=== PATIENT | male | born 1950 | race Caucasian/White ===

== ENCOUNTER → 2018-03-05 | Outpatient (CLI) | payer MEDICARE ==
--- NOTE | 2018-03-05 16:46 | US ---
EXAMINATION TYPE: US liver DATE OF EXAM: 03/05/2018 COMPARISON: NONE CLINICAL HISTORY: 67-year-old male R60.0 Localized edema. Elevated liver enzymes TECHNIQUE: Multiple sonographic images of the right upper quadrant are obtained. FINDINGS: Court Security Officer notes: Extremely limited exam due to midline bowel gas and body habitus. EXAM MEASUREMENTS: Liver Length: 14.8 cm Gallbladder Wall: 0.2 cm CBD: 0.5 cm Right Kidney: 14.2 x 6.5 x 4.9 cm Pancreas: not well visualized due to midline bowel gas Liver: nodular contour, limited visualization of right lobe due to midline bowel gas. No focal lesio n within the visualized portions. Gallbladder: No mildly hydropic measuring 5 cm wide. No pericholecystic fluid, wall thickening, or s hadowing calculi. Evidence for sonographic Rico's sign: Yes CBD: wnl Right Kidney: No hydronephrosis. Upper pole cyst measures 2.7 x 2.2 x 2.1 cm IMPRESSION: 1. Mildly hydropic gallbladder but without ancillary findings of acute cholecystitis at this time. Matt wilkinson, given the positive sonographic Rico sign, if concern for early acute cholecystitis, follow-u p ultrasound or HIDA scan. 2. Slight contour nodularity of the liver may represent underlying cirrhosis. Exam is significantly l imited due to combination of body habitus and bowel gas.
--- NOTE | 2018-03-06 14:34 | ECHOF ---
Referral Reason:R60.0 Localized edema MEASUREMENTS -------- HEIGHT: 177.8 cm WEIGHT: 95.3 kg BP: RVIDd: 3.5 cm (< 3.3) IVSd: 1.0 cm (0.6 - 1.1) LVIDd: 5.8 cm (3.9 - 5.3) LVPWd: 1.1 cm (0.6 - 1.1) IVSs: 1.3 cm LVIDs: 3.4 cm LVPWs: 1.3 cm LAESV Index (A-L): 22.62 ml/m Ao Diam: 4.3 cm (2.0 - 3.7) AV Cusp: 2.1 cm (1.5 - 2.6) LA Diam: 3.3 cm (2.7 - 3.8) MV E Jean: 0.41 m/s MV DecT: 261 ms MV A Jean: 0.80 m/s MV E/A Ratio: 0.52 RAP: 5.00 mmHg RVSP: 18.26 mmHg FINDINGS -------- Sinus rhythm. This was a technically adequate study. The left ventricular size is normal. There is borderline concentric left ventricular hypertrophy. Overall left ventricular systolic function is normal with, an EF between 55 - 60 %. The right ventricle is mildly enlarged. Normal LA size by volume 22+/-6 ml/m2. The right atrium is normal in size. Aortic valve is trileaflet and is mildly thickened. Trace to mild aortic regurgitation. There is no evidence of aortic stenosis. The mitral valve leaflets are mildly thickened. There is trace to mild mitral regurgitation. Trace tricuspid regurgitation present. Right ventricular systolic pressure is normal at < 35 mmHg. There is no evidence of pulmonary hypertension. Trace/mild (physiologic) pulmonic regurgitation. The aortic root is mildy dilated, up to 3.9 cm. Normal inferior vena cava with normal inspiratory collapse consistent with estimated right atrial pre ssure of 5 mmHg. There is no pericardial effusion. CONCLUSIONS -------- 1. Sinus rhythm. 2. This was a technically adequate study. 3. The left ventricular size is normal. 4. There is borderline concentric left ventricular hypertrophy. 5. Overall left ventricular systolic function is normal with, an EF between 55 - 60 %. 6. The right ventricle is mildly enlarged. 7. Normal LA size by volume 22+/-6 ml/m2. 8. Aortic valve is trileaflet and is mildly thickened. 9. Trace to mild aortic regurgitation. 10. The mitral valve leaflets are mildly thickened. 11. There is trace to mild mitral regurgitation. 12. Trace tricuspid regurgitation present. 13. Right ventricular systolic pressure is normal at < 35 mmHg. 14. There is no evidence of pulmonary hypertension. 15. Trace/mild (physiologic) pulmonic regurgitation. 16. The aortic root is mildy dilated. 17. There is no pericardial effusion. WARP DYEING TENDER: Jesus Verma RDCS
== END | disposition home or self-care (01) ==
LOC: RADECHMAIN 15:41
PROVIDERS: ATTEND Internal Medicine
DX: I08.3 Combined rheumatic disorders of mitral, aortic and tricuspid valves (principal); K76.89 Other specified diseases of liver; K82.1 Hydrops of gallbladder
CPT/HCPCS: 76705; 93306

== ENCOUNTER → 2019-08-16 | Outpatient (CLI) | payer MEDICARE ==
[2019-08-16 15:13] LABS: HCT 36.9 % (39.0-53.0); HGB 12.7 gm/dL (13.0-17.5); MCH 35.8 pg (25.0-35.0); MCHC 34.3 g/dL (31.0-37.0); MCV 104.2 fL (80.0-100.0); Macrocytosis Slight; Mean Platelet Volume 8.4; Platelet Count 122 k/uL (150-450); RBC 3.54 m/uL (4.30-5.90); RDW 12.9 % (11.5-15.5)
[2019-08-16 15:27] LABS: Partial Thromboplastin Time 24.9 sec (22.0-30.0); Prothrombin Time 10.8 sec (9.0-12.0)
[2019-08-16 15:41] LABS: Albumin 4.2 g/dL (3.5-5.0); Appearance,Urine Clear (Clear); Bilirubin,Urine Negative (Negative); Blood,Urine Negative (Negative); Calcium 9.6 mg/dL (8.4-10.2); Color,Urine Yellow; Glucose,Urine (UA) Negative (Negative); Ketones,Urine Negative (Negative); Leukocyte Esterase,Urine Negative (Negative); Nitrite,Urine Negative (Negative); PH, Urine 6.5 (5.0-8.0); Potassium 4.2 mmol/L (3.5-5.1); Protein,Urine Negative (Negative); Specific Gravity,Urine 1.018 (1.001-1.035); Total Bilirubin 1.2 mg/dL (0.2-1.3); Total Protein 6.8 g/dL (6.3-8.2); Urobilinogen,Urine <2.0 mg/dL (<2.0)
== END | disposition home or self-care (01) ==
LOC: LABPAT 14:19
PROVIDERS: ATTEND Orthopaedic Surgery
DX: Z01.812 Encounter for preprocedural laboratory examination (principal); Z01.818 Encounter for other preprocedural examination
CPT/HCPCS: 36415; 80053; 81003; 85027; 85610; 85730; 87070; 93005

== ENCOUNTER 2019-09-05 13:18 | Day surgery (SDC) | payer MEDICARE ==
[2019-08-26 11:40] VITALS: BMI 30.4
[~2019-09-05 13:18] MED LIST: ACETAMINOPHEN TAB 500 MG TAB PO ONE; BISACODYL 10 MG SUPP RECTAL PRN; GABAPENTIN 300 MG CAP PO ONE; HYDROcodone/APAP 5-325MG 1 EACH TAB PO PRN; HYDROmorphone 0.5 MG/0.5 ML SYRINGE IVP PRN; LIDOCAINE 1% 20 ML VIAL (10MG/ML) FOR IV START INTRADERMA PRN; MAGNESIUM HYDROXIDE 2,400 MG/10 ML CUP PO PRN; MELOXICAM 7.5 MG TAB PO ONE; MIDAZOLAM 2 MG/2 ML VIAL IV PRN; NA PHOS,M-B/NA PHOS,DI-BA 133 ML ENEMA RECTAL PRN; NALOXONE 0.4 MG/ML 1 ML VIAL IV PRN; ONDANSETRON 4 MG/2 ML VIAL IVP PRN; TRANEXAMIC ACID 1,000 MG in SODIUM CHLORIDE 0.9% 100 ML IVPB ONE; fentaNYL (PF) 50 MCG/ML 2 ML AMP IV PRN; hydrOXYzine PAMOATE 25 MG CAP PO PRN
[2019-09-05] MEDS: LACTATED RINGERS 1,000 ML IV SCH ×3 (14:11→19:46)
[2019-09-05] MEDS ORDERED: DEXAMETHASONE SOD PHOSPHATE 10 MG/ML 1 ML VIAL IV ONE (14:24)
[2019-09-05] MEDS ORDERED: MIDAZOLAM 2 MG/2 ML VIAL IVP ONE (14:30)
[2019-09-05] MEDS ORDERED: fentaNYL (PF) 50 MCG/ML 2 ML AMP IV ONE (14:30)
[2019-09-05] MEDS ORDERED: PROPOFOL 10 MG/ML 20 ML VIAL IV ONE (15:11)
[2019-09-05] MEDS ORDERED: fentaNYL (PF) 50 MCG/ML 2 ML AMP ONE (15:11)
[2019-09-05] MEDS ORDERED: MIDAZOLAM 2 MG/2 ML VIAL ONE (15:11)
[2019-09-05] MEDS ORDERED: PHENYLEPHRINE-0.9% NACL SYG 1 MG/10 ML SYRINGE ONE (15:11)
[2019-09-05] MEDS ORDERED: TRANEXAMIC ACID 1,000 MG/10 ML VIAL ONE (15:11)
[2019-09-05] MEDS ORDERED: SODIUM CHLORIDE 0.9% 100 ML BAG ONE (15:11)
[2019-09-05] MEDS: ROPIVACAINE 246.25 MG, EPINEPHrine 0.5 MG, KETOROLAC 30 MG, cloNIDine HCL/PF 80 MCG, WA... MISCELLANE ONE ×10 (15:14→16:09)
[2019-09-05] MEDS ORDERED: ROPIVACAINE 0.2%-NS ON-Q PUMP 1,090 MG, EMPTY PAIN BALL 1 EACH MISCELLANE PRN (15:14)
--- NOTE | 2019-09-05 15:16 | P.ANPRN ---
Procedure Note - Anesthesia - Nerve Block Performed Right Adductor Canal Infusion Time Out Performed: Yes Date of Procedure: 09/05/19 Procedure Start Time: 14:29 Procedure Stop Time: 14:38 Location of Patient: PreOp Indication: Acute Post-Operative Pain, Requested by Surgeon Specifically requested for management of pain by DrNelson: Daniel Steward Sedation Type: Sedate with meaningful contact maintained Preparation: Sterile Prep Position: Supine Catheter Depth at Skin (cm): 7 Catheter: Indwelling Needle Types: Pajunk Needle Gauge: 18 Ultrasound used to visualize needle placement: Yes Ultrasound used to observe medication spread: Yes Injectate: 0.5% Ropivacaine (see comment for volume) (20 cc) Blood Aspirated: No Pain Paresthesia on Injection Noted: No Resistance on Injection: Normal Image Stored and Saved: Yes Events: Uneventful and Well Tolerated
[2019-09-05] MEDS ORDERED: LACTATED RINGERS 1,000 ML IV ONE (15:47)
--- NOTE | 2019-09-05 17:10 | P.OP ---
Date of Procedure: 09/05/19 Procedure(s) Performed: PREOPERATIVE DIAGNOSIS: Right knee severe osteoarthritis with genu varum POSTOPERATIVE DIAGNOSIS: Right knee severe osteoarthritis with genu varum OPERATION: Right knee cemented total replacement arthroplasty. ANESTHESIA: Spinal ESTIMATED BLOOD LOSS: 50ml. ALGEBRA TEACHER: Rowena Tello PA-C (assistance with: patient positioning, retraction, exposure, hemostasis, leg positioning, implantation, irrigation, closure, dressing) COMPLICATIONS: None apparent. COMPONENTS IMPLANTED: Journey II BCS total knee system from [employer] INDICATIONS: Mr. Mcdermott is a 68 year old male with a history of right knee osteoarthritis. The patient's knee is end-stage, and conservative management has failed. The operation of knee replacement has been discussed at length in the office, as well as potential risks and complications. These are inclusive of, but not limited to: bleeding, infection, scarring, discomfort, blood vessel and nerve damage, need for further surgery, failure to relieve symptoms, persistence, recurrence, or worsening of problems, loosening, dislocation, wear, blood clot, pulmonary embolism, , gait dysfunction, stiffness, and other risks as discussed in the office. The patient elects to proceed and the consent form has been signed. PROCEDURE: The patient was taken to the operating room and positioned on the operating room table in the supine position. Anesthesia was initiated. Care was taken to make sure that all pressure points were adequately padded. The operative lower extremity was prepped and draped in the usual aseptic fashion using ChloraPrep. Ioban drape was used for the case and the patient received intravenous antibiotics within one hour of the incision. A pneumotourniquet and leg lay were used for the case. The limb was exsanguinated with an Esmarch bandage and the tourniquet was inflated to 350 mmHg. Time-out was called confirming the patient's identity, side, procedure and administration of antibiotics and tranexamic acid. The incision was then created midline directly over the right knee, carried down through skin and into the subcutaneous tissues and down to fascia. Full thickness subcutaneous medial flap was developed. Medial parapatellar arthrotomy was performed and the interior of the knee was inspected. There was end-stage osteoarthritis of the knee with a mild to moderate genu valgum type deformity. The fat pad was excised and proximal medial release on the tibia was completed using meticulous dissection and a curved osteotome. The anterior cruciate ligament was taken down. Note was made of significant attrition of the anterior and significant degenerative appearance of the cruciate ligaments. The exposure was excellent. The knee was flexed 90 degrees and the patella was everted. The [employer] pre- made distal cutting block was attached and pinned into position. The planned cut was analyzed visually and with the alignment imelda and found to be satisfactory without the need for any adjustment. The oscillating saw was then used to make the distal femoral cut and make the alignment holes for the 5 in 1 block. This cut was confirmed to be flat with the flat end of an osteotome. The 5 in 1 block was then used to create the anterior posterior condylar resections and the chamfer cuts. The retractors were placed around the tibia and the tibial surface was addressed. The [employer] pre-made guide was placed onto the exposed tibial surface and pinned into position to dewayne the rotational alignment. The alignment of the guide was checked for depth of plannned resection, slope, and varus valgus. Guide was confirmed to be in good position and the tibial cut was then created with protection of the posterior neurovascular structures and the collateral ligaments. The tibial cut surface was removed and sized. Spacer block technique was then used to confirm that the flexion and extension gaps were equal. Soft tissue releases and adjustment of the tibial and/or femoral cuts were made, as necessary, until the gaps were equal. This included release of the posterior cruciate ligament, which was excessively tight in this patient. Prior to placing trial components, anesthetic solution consisting of ropivicaine with epinephrine, ketorolac, and clonidine was injected carefully and methodically in a grid pattern using aspiration technique into the soft tissue around the knee circumferentially, starting with the deeper tissues first and progressing to fascia, and then finally the skin/subcutaneous tissue. Particular care was taken when injecting the posterior capsule, with avoidance of the midline posterior area. The trial components were inserted. The tibial tray was allowed to self center and the patella was noted to track very well. The position of the tibial component was marked and noted to be nearly exactly aligned with the pre-drilled holes from the [employer] guide. The tibia was then finished for a stemmed tibial component. Patellar resurfacing was performed using a reamer. The size of the required patellar component was estimated and the patellar surface was then reamed down to a residual thickness which would recreate the chipewwa thickness with the component. The exact placement of the patellar component was adjusted for posit ion based on preoperative x-rays and intraoperative findings. Trial components were removed and the cut surfaces of the bone were pulse lavaged thoroughly and dried. Cement was mixed on the back table and applied to the final components. Cement was then applied to the tibial surface and pressurized into the surface using finger pressurization technique. The tibial component was then applied and excess cement was removed after it was impacted securely and noted to be flush with the cut surface. In similar fashion, the cement was applied to the cut femoral surface, pressurized in using finger pressurization and the component was impacted into place. Excess cement was removed. The polyethylene spacer was then implanted and locked into position. The patellar component was then applied in similar technique and a patellar clamp was used to hold the patella in place as the cement hardened. Once the cement had fully hardened, the knee was reinspected. Any other cement extrusion was removed and final kinematic testing showed range of motion from 0 to 130 degrees with excellent stability, both medially and laterally and appropriate alignment of the leg. Patellar tracking was excellent. The knee was then thoroughly pulse lavaged with normal saline. The tourniquet was deflated and hemostasis was obtained with electrocautery and IV tranexamic acid, 1 g given at the start of the operation and 1 g at the start of closure. Closure was with #2 Ethibond in the fascia/capsule and supplemented with #2 Quill, 2-0 Vicryl suture was used for the subcutaneous tissues and 3-0 Quill for the skin. Dermabond/Steri-Strips were then applied. A lightly compressive dressing was applied using Webril and an Blas wrap. The patient was then transferred to stretcher and taken to the recovery room in stable
--- NOTE | 2019-09-05 17:45 | XR ---
EXAMINATION TYPE: XR knee limited RT DATE OF EXAM: 09/05/2019 COMPARISON: NONE HISTORY: Knee surgery TECHNIQUE: 2 views FINDINGS: There is right knee prosthesis. Components are in anatomic position. IMPRESSION: No complicating process seen.
[2019-09-05] MEDS: SODIUM CHLORIDE 0.9% 1,000 ML IV SCH ×2 (19:45→23:36)
[2019-09-05] MEDS ORDERED: ASPIRIN 81 MG PO SCH (21:00)
[2019-09-05] MEDS ORDERED: SENNOSIDES-DOCUSATE SODIUM 1 EACH TAB PO SCH (21:00)
--- NOTE | 2019-09-05 21:52 | P.CONS ---
History of Present Illness - Reason for Consult Consult date: 09/05/19 Medical management Requesting physician: Daniel Steward - Chief Complaint Right total knee arthroplasty - History of Present Illness Consultation: This is a pleasant 68-year-old patient of Dr. Jeremías Velasco. Chronic stable medical conditions include hypertension, osteoarthritis in many joints, hemachromatosis. Patient has weekly bloodletting. Does follow with Dr. Marcos lees om gastroenterology. He has undergone right total knee arthroplasty. Postprocedure pain is controlled. No nausea vomiting. No chest pain. Denies any cardiac history. Did tolerate some supple despite. Laying in bed. Review of systems: GEN.: None EYES: None HEENT: None NECK: None RESPIRATORY: None CARDIOVASCULAR: None GASTROINTESTINAL: None GENITOURINARY: None MUSCULOSKELETAL: Joint pains LYMPHATICS: None HEMATOLOGICAL: None PSYCHIATRY: None NEUROLOGICAL: None Social history: Does not smoke. Alcohol occasionally. Rarely marijuana. This was his fiance. Retired. 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 Family history: Reviewed, noncontributory to presentation Physical examination: VITAL SIGNS: 98, 75, 18, 131/76, 36% room air GENERAL: [Average built, laying in bed, comfortable. EYES: Pupils equal. Conjunctiva normal. HEENT: External appearance of nose and ears normal, oral cavity grossly normal. NECK: JVD not raised; masses not palpable. HEART: First and second heart sounds are normal; no edema. LUNGS: Respiratory rate normal; clear to auscultation. ABDOMEN: Soft, nontender, liver spleen not palpable, no masses palpable. PSYCH: Alert and oriented x3; mood and affect normal. NEUROLOGICAL: Cranial nerves grossly intact; no facial asymmetry, power and sensation grossly intact. LYMPHATICS: No lymph nodes palpable in the axilla and neck MUSCULOSKELETAL: Dressing over the right knee INVESTIGATIONS, reviewed in the clinical context: from 08/16/2019: White count 5 hemoglobin 12.7 potassium 4.2 creatinine 1.11 EKG-normal sinus rhythm Assessment: -Right total knee arthroplasty -Primary osteoarthritis -Essential hypertension -Chronic hemachromatosis Plan: Patient's home medications resumed. Care was discussed with the patient. Patient is getting IV fluids and is on aspirin for DVT prophylaxis per orthopedics. Questions were answered. Thank you Dr. Steward Past Medical History Past Medical History: Blood Disorder, Hypertension, Osteoarthritis (OA) Additional Past Medical History / Comment(s): hx of hemochromatosis (states too much iron) History of Any Multi-Drug Resistant Organisms: None Reported Past Surgical History: Joint Replacement, Orthopedic Surgery Additional Past Surgical History / Comment(s): rt hip replacement, colonoscopy, past knee sx Past Anesthesia/Blood Transfusion Reactions: Previous Problems w/ Anesthesia Additional Past Anesthesia/Blood Transfusion Reaction / Comm: "slow to wake up" Past Psychological History: No Psychological Hx Reported Smoking Status: Never smoker Past Alcohol Use History: Occasional Past Drug Use History: Marijuana Additional Drug Use History / Comment(s): occasional use, instructed to hold 24 hrs prior to procedure - Past Family History Father Family Medical History: No Reported History Mother Family Medical History: No Reported History Medications and Allergies Home Medications Medication Instructions Recorded Confirmed Type Diclofenac Sodium [Voltaren] 25 mg PO DIRECTED 08/26/19 08/26/19 History Hydrochlorothiazide 25 mg PO QAM 08/26/19 09/05/19 History Losartan Potassium 100 mg PO QAM 08/26/19 09/05/19 History Multivitamins, Thera [Multivitamin 1 tab PO DAILY 08/26/19 08/26/19 History (formulary)] Naproxen Sodium [Aleve] 220 mg PO BID PRN 08/26/19 08/26/19 History Sildenafil 1 tab PO DIRECTED PRN 08/26/19 History Tumeric 1 tab PO DAILY 08/26/19 History Allergies Allergy/AdvReac Type Severity Reaction Status Date / Time clindamycin Allergy Rash/Hives Verified 09/05/19 14:19 Physical Exam Vitals: Vital Signs Temp Pulse Resp BP Pulse Ox 09/05/19 20:30 98.0 F 75 18 131/76 96 09/05/19 20:15 73 146/76 98 09/05/19 20:00 66 154/81 96 09/05/19 19:45 56 L 130/77 98 09/05/19 19:30 55 L 163/82 100 09/05/19 19:15 49 L 136/72 100 09/05/19 19:00 49 L 142/71 98 09/05/19 18:45 50 L 124/84 99 09/05/19 18:30 97.9 F 61 18 144/78 98 09/05/19 18:21 96.5 F L 64 16 147/72 96 09/05/19 18:00 50 L 14 149/72 99 09/05/19 17:45 48 L 14 123/58 96 09/05/19 17:21 97.1 F L 76 16 140/66 96 09/05/19 14:53 58 L 153/79 99 09/05/19 14:11 98.5 F 60 146/88 98 Intake and Output 09/05/19 09/05/19 09/05/19 06:59 14:59 22:59 Intake Total 600 1250 Output Total 400 Balance 600 850 Intake: IV 600 1250 Output: Urine 350 Estimated Blood Loss 50 Other: # Voids 1 Weight 92.6 kg 92.6 kg
[2019-09-06 07:47] VITALS: BP 112/65; PULSE 60; RESP 16; TEMP 98.6
[2019-09-06 07:58] LABS: Basophils % (A) 0 %; Eosinophils % (A) 0 %; HCT 31.1 % (39.0-53.0); HGB 10.6 gm/dL (13.0-17.5); Lymphocytes # (A) 0.7 k/uL (1.0-4.8); Lymphocytes % (A) 8 %; MCH 35.7 pg (25.0-35.0); MCHC 33.9 g/dL (31.0-37.0); MCV 105.2 fL (80.0-100.0); Macrocytosis Slight; Mean Platelet Volume 8.5; Monocytes # (A) 0.5 k/uL (0-1.0); Monocytes % (A) 5 %; Neutrophils # (A) 8.5 k/uL (1.3-7.7); Neutrophils % (A) 86 %; Platelet Count 119 k/uL (150-450); RBC 2.96 m/uL (4.30-5.90); RDW 12.8 % (11.5-15.5); WBC 9.9 k/uL (3.8-10.6)
--- NOTE | 2019-09-06 08:11 | P.PN ---
Progress Note - Text Anesthesia POD 1 0713. Patient is status post right TKR under spinal anesthesia with a right adductor canal catheter placed for postoperative pain relief. With ropivacaine 0.2% running at 8 cc's per hour, the patient's VAS is (2, 4). Catheter site is clean dry and intact.
[2019-09-06] MEDS ORDERED: LOSARTAN 50 MG TAB PO SCH (09:00)
[2019-09-06] MEDS ORDERED: ASPIRIN 325 MG TAB PO SCH (09:00)
[2019-09-06] MEDS ORDERED: HYDROCHLOROTHIAZIDE 25 MG TAB PO SCH (09:00)
--- NOTE | 2019-09-07 00:15 | P.PN ---
Progress Note - Text Progress Note Date: 09/06/19 - Chief Complaint Right total knee arthroplasty Interval history: This is a pleasant 68-year-old patient of Dr. Jeremías Velasco. Chronic stable medical conditions include hypertension, osteoarthritis in many joints, hemachromatosis. Patient has weekly bloodletting. Does follow with Dr. Rodríguez from gastroenterology. He has undergone right total knee arthroplasty. Today-feeling better. Pain control. Did have his breakfast. Did work with [employer] Review of systems: Was done for constitutional, cardiovascular, GI, pulmonary. Musculoskeletal, relevant finding as above Current medications reviewed in today's electronic records Physical examination: VITAL SIGNS: 98.6, 60, 16, 11 2/65, 95% room air GENERAL: Laying in bed, comfortable EYES: Pupils equal. Conjunctiva normal. HEENT: External appearance of nose and ears normal, oral cavity grossly normal. NECK: JVD not raised; masses not palpable. HEART: First and second heart sounds are normal; no edema. LUNGS: Respiratory rate normal; clear to auscultation. ABDOMEN: Soft, nontender, liver spleen not palpable, no masses palpable. PSYCH: Alert and oriented x3; mood and affect normal. MUSCULOSKELETAL: Dressing over the right knee INVESTIGATIONS, reviewed in the clinical context: White count 9.9 hemoglobin 10.6 platelets 119 from 08/16/2019: White count 5 hemoglobin 12.7 potassium 4.2 creatinine 1.11 EKG-normal sinus rhythm Assessment: -Right total knee arthroplasty -Primary osteoarthritis -Essential hypertension -Chronic hemachromatosis -Acute postprocedure blood loss anemia as expected from surgery Plan: Patient stable. Should have repeat labs drawn as an outpatient. Follow with PCP to week. Follow was discussed with the patient.. Thank you Dr. Steward
== END 2019-09-06 13:40 | disposition home or self-care (01) ==
LOC: OR 13:18 → 4SSUR 17:20 → OR 09-06 13:40
PROVIDERS: ATTEND Orthopaedic Surgery
DX: M17.0 Bilateral primary osteoarthritis of knee (principal); D62 Acute posthemorrhagic anemia; M89.49 Other hypertrophic osteoarthropathy, multiple sites; E83.110 Hereditary hemochromatosis; N52.9 Male erectile dysfunction, unspecified; I10 Essential (primary) hypertension; R22.41 Localized swelling, mass and lump, right lower limb; H91.90 Unspecified hearing loss, unspecified ear; R26.81 Unsteadiness on feet; H53.8 Other visual disturbances; R00.1 Bradycardia, unspecified; Z79.899 Other long term (current) drug therapy; Z79.1 Long term (current) use of non-steroidal anti-inflammatories (NSAID); Z97.3 Presence of spectacles and contact lenses; Z86.19 Personal history of other infectious and parasitic diseases; Z96.641 Presence of right artificial hip joint; Z98.890 Other specified postprocedural states; Z88.1 Allergy status to other antibiotic agents; Z79.891 Long term (current) use of opiate analgesic; Z91.89 Other specified personal risk factors, not elsewhere classified; Z82.49 Family history of ischemic heart disease and other diseases of the circulatory system; Z80.1 Family history of malignant neoplasm of trachea, bronchus and lung
CPT/HCPCS: 27447; 97161; 64448; 76942; 85025; 88300; 73560; C1713; C1776; J2250; J0171; J1100; J0690 ×2; J2405; J3010; J1885; J2795 ×2; J2370; J2704; J0735

== ENCOUNTER 2020-06-20 09:48 | Day surgery (SDC) | payer MEDICARE ==
[2020-06-15 15:26] VITALS: BMI 30.1
[~2020-06-20 09:48] MED LIST changes: -ACETAMINOPHEN TAB 500 MG TAB PO ONE; -BISACODYL 10 MG SUPP RECTAL PRN; -GABAPENTIN 300 MG CAP PO ONE; -HYDROcodone/APAP 5-325MG 1 EACH TAB PO PRN; -HYDROmorphone 0.5 MG/0.5 ML SYRINGE IVP PRN; +LACTATED RINGERS 1,000 ML IV SCH; +LIDOCAINE 1% (10MG/ML) FOR IV START INTRADERMA PRN; -LIDOCAINE 1% 20 ML VIAL (10MG/ML) FOR IV START INTRADERMA PRN; -MAGNESIUM HYDROXIDE 2,400 MG/10 ML CUP PO PRN; -MELOXICAM 7.5 MG TAB PO ONE; -MIDAZOLAM 2 MG/2 ML VIAL IV PRN; -NA PHOS,M-B/NA PHOS,DI-BA 133 ML ENEMA RECTAL PRN; -NALOXONE 0.4 MG/ML 1 ML VIAL IV PRN; -ONDANSETRON 4 MG/2 ML VIAL IVP PRN; -TRANEXAMIC ACID 1,000 MG in SODIUM CHLORIDE 0.9% 100 ML IVPB ONE; -fentaNYL (PF) 50 MCG/ML 2 ML AMP IV PRN; -hydrOXYzine PAMOATE 25 MG CAP PO PRN
[2020-06-20 10:49] VITALS: RESP 16; TEMP 97
[2020-06-20] MEDS ORDERED: PROPOFOL 10 MG/ML 20 ML VIAL IV ONE (11:25)
[2020-06-20] MEDS ORDERED: LIDOCAINE 1% INJ 10MG/ML (20 ML MDV) ONE (11:25)
--- NOTE | 2020-06-20 11:43 | P.PCN ---
Date of Procedure: 06/20/20 Procedure(s) Performed: BRIEF HISTORY: Patient is a 69-year-old, pleasant, white male scheduled for an upper endoscopy as a part of evaluation of intermittent dysphagia to solids. 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 PROCEDURE PERFORMED: Esophagogastroduodenoscopy with biopsy and dilation. PREOPERATIVE DIAGNOSIS: Intermittent dysphagia to solids. IV sedation per anesthesia. PROCEDURE: After informed consent was obtained, the patient was brought into the endoscopy unit. IV sedation was administered by Anesthesia under continuous monitoring. Initially the Olympus GIF-140 video endoscope was inserted into the mouth. Esophagus intubated without any difficulty. It was gradually advanced into the stomach and duodenum and carefully examined. The bulb and the second part of the duodenum appeared normal. The scope at this time was withdrawn to the stomach, adequately insufflated with air, and upon careful examination, mucosa of the antrum, had mild gastritis and biopsies were done from this area. The body, cardia and the fundus appeared normal. Small gastric varices seen and the fundus of the stomach. The scope was then withdrawn into the esophagus. The GE junction was located at 39 cm from the incisors. There was a distal esophageal Schatzki's ring identified and this was dilated using 15-18 mm TTS balloon in a sequential fashion for 60 seconds. There were small distal esophageal varices seen. The rest of the The esophagus appeared normal. There were no erosions or ulcerations seen and the patient tolerated the procedure well. IMPRESSION: 1. Distal esophageal Schatzki's ring status post balloon dilation using 15-18 mm TTS balloon as described above. 2. Hiatal hernia. 3. Small gastric and esophageal varices RECOMMENDATIONS: The findings of this examination were discussed with the patient as well as his family. He was advised to remain on clear liquid diet. Continue current medications. He'll be seen in office in 2-3 weeks
[2020-06-20 11:51] VITALS: PULSE 55
[2020-06-20 12:08] VITALS: BP 149/80
== END 2020-06-20 12:21 | disposition home or self-care (01) ==
LOC: ORWHC2ENDO 09:48
PROVIDERS: ATTEND Internal Medicine Gastroenterology
DX: K29.50 Unspecified chronic gastritis without bleeding (principal); I86.4 Gastric varices; K22.2 Esophageal obstruction; K44.9 Diaphragmatic hernia without obstruction or gangrene; I85.00 Esophageal varices without bleeding; I10 Essential (primary) hypertension; Z96.651 Presence of right artificial knee joint; Z79.899 Other long term (current) drug therapy; Z88.1 Allergy status to other antibiotic agents
CPT/HCPCS: 43239; 43249; J2001; J2704; C1726; 88305